=== PATIENT | male | born 1970 | race Caucasian/White ===

== ENCOUNTER 2020-11-25 21:43 | Inpatient (IN) ==
[2020-11-25] MEDS ORDERED: Morphine Sulfate 2 MG/ML SYRINGE IVP STA (21:55)
[2020-11-25] MEDS ORDERED: *HR* HYDROmorphone (PF) 1 MG/ML SYRINGE IVP ONE (22:04)
[2020-11-25] MEDS: 0.9 % Sodium Chloride 1,000 ML IVC SCH ×2 (22:18→23:32)
[2020-11-25] MEDS ORDERED: Ondansetron 4 MG/2 ML VIAL IVP ONE (22:20)
[2020-11-25 22:53] LABS: Basophils % 0.2 %; Eosinophils % 0.2 %; Hematocrit 42.3 % (37.5-50.1); Immature Granulocytes % 0.6 % (0-4); Lymphocytes # 0.6 K/mcL (0.6-4.6); Lymphocytes % 4.6 %; Mean Corpuscular HGB Conc 33.1 g/dL (31.6-35.5); Mean Corpuscular Hemoglobin 28.5 pg (28.0-33.3); Mean Corpuscular Volume 86.2 fL (83.0-100.0); Mean Platelet Volume 9.3 fL (9.4-12.4); Monocytes # 0.8 K/mcL (0.0-1.3); Monocytes % 6.3 %; Neutrophils # 10.8 K/mcL (1.6-8.9); Platelet Count 249 K/mcL (140-400); Red Blood Count 4.91 M/mcL (4.19-5.50); Red Cell Distribution Width 13.5 % (11.5-14.5); Segmented Neutrophils % 88.1 %; White Blood Count 12.3 K/mcL (4.3-11.1)
[2020-11-25 23:06] LABS: Bilirubin,Urine Negative (Negative); Blood,Urine Negative (Negative); Clarity,Urine Clear (Clear); Color,Urine Light-Yellow (Yellow); Glucose,Urine (UA) Normal (Normal); Ketones,Urine Negative (Negative); Leukocyte Esterase,Urine Negative (Negative); Nitrite,Urine Negative (Negative); PH,Urine 7.5 pH Units (5.0-8.0); Protein,Urine Trace mg/dL (Neg-Trace); Specific Gravity,Urine 1.021 (1.010-1.025); Urobilinogen,Urine Normal (Normal)
[2020-11-25] MEDS ORDERED: cefTRIAXone 1,000 MG in Water for inj. (sterile) 10 ML IVP ONE (23:08)
[2020-11-25] MEDS ORDERED: Azithromycin 500 MG in 0.9 % Sodium Chloride 250 ML IVPB ONE (23:08)
[2020-11-25 23:15] LABS: INR 1.1; Prothrombin Time 13.1 Seconds (9.4-12.1)
[2020-11-25 23:18] LABS: Activated Partial Thrombo Time 23.7 Seconds (26.0-36.0)
[2020-11-25 23:20] LABS: Albumin 4.3 g/dL (3.5-5.7); Albumin/Globulin Ratio 1.3 (1.1-2.2); Bilirubin,Indirect 0.4 mg/dL (0.0-1.0); Bilirubin,Total 0.4 mg/dL (0.3-1.0); Globulin 3.3 g/dL (2.4-3.5); Total Protein 7.6 g/dL (6.4-8.9)
[2020-11-25 23:23] LABS: BUN/Creatinine Ratio 14 (6-26); Blood Urea Nitrogen 14 mg/dL (6-20); Calcium 9.3 mg/dL (8.6-10.3); Carbon Dioxide 23 mEq/L (23-29); Chloride 105 mEq/L (98-107); Glucose 132 mg/dL (70-105); Osmolality,Calculated 288 (280-300); Potassium 4.2 mEq/L (3.5-5.1); Sodium 138 mEq/L (136-145); Troponin I < 0.03 ng/mL (< 0.04); eGFR For African Americans > 60 (> 60); eGFR For Non-African Americans > 60 (> 60)
[2020-11-26] MEDS ORDERED: Isovue-370 500 ML BOTTLE IVP ONE (00:31)
[2020-11-26] MEDS ORDERED: *HR* HYDROmorphone (PF) 1 MG/ML SYRINGE IVP STA (00:43)
[2020-11-26] MEDS ORDERED: *HR* HYDROmorphone (PF) 1 MG/ML SYRINGE IVP ONE ×4 (03:34→22:50)
[2020-11-26 04:07] LABS: Adenovirus Not Detected (Not Detect); Bordetella Pertussis Not Detected (Not Detect); Chlamydophila pneumoniae Not Detected (Not Detect); Coronavirus 229E Not Detected (Not Detect); Coronavirus HKU1 Not Detected (Not Detect); Coronavirus NL63 Not Detected (Not Detect); Coronavirus OC43 Not Detected (Not Detect); Human Metapneumovirus Not Detected (Not Detect); Human Rhinovirus/Enterovirus Not Detected (Not Detect); Influenza A Subtype 2009 H1 Not Detected (Not Detect); Influenza B Not Detected (Not Detect); Mycoplasma pneumoniae Not Detected (Not Detect); Parainfluenza Virus 1 Not Detected (Not Detect); Parainfluenza Virus 2 Not Detected (Not Detect); Parainfluenza Virus 3 Not Detected (Not Detect); Parainfluenza Virus 4 Not Detected (Not Detect); Respiratory Syncytial Virus Not Detected (Not Detect); SARS-CoV-2 Not Detected (Not Detect)
[2020-11-26] MEDS ORDERED: Ondansetron 4 MG/2 ML VIAL IVP ONE (09:04)
[2020-11-26] MEDS ORDERED: *HR* Promethazine 25 MG/ML VIAL IM PRN (10:26)
[2020-11-26] MEDS ORDERED: Naloxone 0.4 MG/ML INJ IVP PRN (10:26)
[2020-11-26] MEDS ORDERED: *HR* OxyCODONE Immed Rel 15 MG TABLET PO PRN (10:30)
[2020-11-26] MEDS: *HR* OxyCODONE Immed Rel 15 MG TABLET PO PRN ×3 (11:35→20:45)
[2020-11-26] MEDS: Vancomycin 1,500 MG/265 ML IV.SOLN IVPB SCH ×2 (11:36→23:03)
[2020-11-26] MEDS: Gabapentin 400 MG CAPSULE PO SCH ×2 (14:45→20:44)
[2020-11-26] MEDS: *HR* Methadone 10 MG TABLET PO SCH (16:11)
[2020-11-26] MEDS: Piperacillin/Tazobactam 3.375 GM in 0.9 % Sodium Chloride Mini Bag 100 ML IVPB SCH (16:12)
[2020-11-26] MEDS: *HR* Heparin 5,000 UNIT/ML VIAL SQ SCH (18:13)
[2020-11-27] MEDS: Piperacillin/Tazobactam 3.375 GM in 0.9 % Sodium Chloride Mini Bag 100 ML IVPB SCH ×2 (00:18→08:04)
[2020-11-27] MEDS: *HR* Methadone 10 MG TABLET PO SCH ×3 (00:18→17:12)
[2020-11-27] MEDS: *HR* OxyCODONE Immed Rel 15 MG TABLET PO PRN ×5 (00:45→21:03)
[2020-11-27] MEDS ORDERED: *HR* HYDROmorphone (PF) 1 MG/ML SYRINGE IVP ONE (03:34)
[2020-11-27 05:34] LABS: Basophils % 0.1 %; Eosinophils # 0.1 K/mcL (0.0-0.6); Eosinophils % 1.9 %; Hematocrit 38.3 % (37.5-50.1); Immature Granulocytes % 0.1 % (0-4); Lymphocytes # 0.8 K/mcL (0.6-4.6); Lymphocytes % 12.5 %; Mean Corpuscular HGB Conc 32.4 g/dL (31.6-35.5); Mean Corpuscular Hemoglobin 28.9 pg (28.0-33.3); Mean Corpuscular Volume 89.3 fL (83.0-100.0); Mean Platelet Volume 9.4 fL (9.4-12.4); Monocytes # 0.6 K/mcL (0.0-1.3); Monocytes % 8.8 %; Neutrophils # 5.2 K/mcL (1.6-8.9); Platelet Count 190 K/mcL (140-400); Red Blood Count 4.29 M/mcL (4.19-5.50); Red Cell Distribution Width 13.8 % (11.5-14.5); Segmented Neutrophils % 76.6 %; White Blood Count 6.7 K/mcL (4.3-11.1)
[2020-11-27 05:36] LABS: Hemoglobin 12.4 g/dL (12.9-16.9)
[2020-11-27] MEDS: *HR* Heparin 5,000 UNIT/ML VIAL SQ SCH ×2 (05:45→16:42)
[2020-11-27 05:51] LABS: BUN/Creatinine Ratio 11 (6-26); Blood Urea Nitrogen 10 mg/dL (6-20); Calcium 8.5 mg/dL (8.6-10.3); Carbon Dioxide 25 mEq/L (23-29); Chloride 105 mEq/L (98-107); Glucose 118 mg/dL (70-105); Osmolality,Calculated 282 (280-300); Potassium 4.1 mEq/L (3.5-5.1); Sodium 136 mEq/L (136-145); eGFR For African Americans > 60 (> 60); eGFR For Non-African Americans > 60 (> 60)
[2020-11-27] MEDS: Gabapentin 400 MG CAPSULE PO SCH ×3 (08:03→20:25)
[2020-11-27] MEDS ORDERED: *HR* HYDROmorphone 2 MG TABLET PO PRN (08:37)
[2020-11-27] MEDS: *HR* HYDROmorphone (PF) 1 MG/ML SYRINGE IVP PRN ×4 (09:20→22:49)
[2020-11-27] MEDS: Azithromycin 250 MG TABLET PO SCH (12:10)
[2020-11-27] MEDS: Vancomycin 1,500 MG/265 ML IV.SOLN IVPB SCH (14:54)
[2020-11-27] MEDS: Cefepime HCl 1,000 MG in Water for inj. (sterile) 10 ML IVP SCH (15:18)
[2020-11-28] MEDS: *HR* Methadone 10 MG TABLET PO SCH ×3 (00:31→15:56)
[2020-11-28] MEDS: Cefepime HCl 1,000 MG in Water for inj. (sterile) 10 ML IVP SCH ×3 (00:31→15:57)
[2020-11-28] MEDS: *HR* OxyCODONE Immed Rel 15 MG TABLET PO PRN ×3 (04:31→20:07)
[2020-11-28] MEDS: *HR* Heparin 5,000 UNIT/ML VIAL SQ SCH ×2 (05:20→16:13)
[2020-11-28] MEDS: *HR* HYDROmorphone (PF) 1 MG/ML SYRINGE IVP PRN ×5 (05:26→22:38)
[2020-11-28 06:18] LABS: Basophils % 0.2 %; Eosinophils # 0.1 K/mcL (0.0-0.6); Eosinophils % 2.6 %; Hematocrit 38.8 % (37.5-50.1); Hemoglobin 12.6 g/dL (12.9-16.9); Immature Granulocytes % 0.4 % (0-4); Lymphocytes # 0.8 K/mcL (0.6-4.6); Lymphocytes % 16.5 %; Mean Corpuscular HGB Conc 32.5 g/dL (31.6-35.5); Mean Corpuscular Hemoglobin 28.8 pg (28.0-33.3); Mean Corpuscular Volume 88.8 fL (83.0-100.0); Mean Platelet Volume 9.5 fL (9.4-12.4); Monocytes # 0.5 K/mcL (0.0-1.3); Monocytes % 11.7 %; Neutrophils # 3.2 K/mcL (1.6-8.9); Platelet Count 199 K/mcL (140-400); Red Blood Count 4.37 M/mcL (4.19-5.50); Red Cell Distribution Width 13.3 % (11.5-14.5); Segmented Neutrophils % 68.6 %; White Blood Count 4.6 K/mcL (4.3-11.1)
[2020-11-28 06:44] LABS: BUN/Creatinine Ratio 15 (6-26); Blood Urea Nitrogen 14 mg/dL (6-20); Calcium 8.7 mg/dL (8.6-10.3); Carbon Dioxide 27 mEq/L (23-29); Chloride 104 mEq/L (98-107); Glucose 101 mg/dL (70-105); Osmolality,Calculated 287 (280-300); Potassium 4.1 mEq/L (3.5-5.1); Sodium 138 mEq/L (136-145); eGFR For African Americans > 60 (> 60); eGFR For Non-African Americans > 60 (> 60)
[2020-11-28] MEDS: Gabapentin 400 MG CAPSULE PO SCH ×3 (08:04→20:07)
[2020-11-28] MEDS: Azithromycin 250 MG TABLET PO SCH (11:06)
[2020-11-29] MEDS: *HR* OxyCODONE Immed Rel 15 MG TABLET PO PRN ×3 (00:14→08:54)
[2020-11-29] MEDS: Cefepime HCl 1,000 MG in Water for inj. (sterile) 10 ML IVP SCH ×2 (00:15→08:55)
[2020-11-29] MEDS: *HR* Methadone 10 MG TABLET PO SCH ×2 (00:15→08:55)
[2020-11-29 02:15] LABS: Basophils % 0.3 %; Eosinophils # 0.1 K/mcL (0.0-0.6); Eosinophils % 3.8 %; Hemoglobin 12.4 g/dL (12.9-16.9); Immature Granulocytes % 0.3 % (0-4); Lymphocytes # 0.5 K/mcL (0.6-4.6); Lymphocytes % 16.9 %; Mean Corpuscular HGB Conc 32.6 g/dL (31.6-35.5); Mean Corpuscular Hemoglobin 28.9 pg (28.0-33.3); Mean Corpuscular Volume 88.6 fL (83.0-100.0); Mean Platelet Volume 9.5 fL (9.4-12.4); Monocytes # 0.4 K/mcL (0.0-1.3); Monocytes % 11.8 %; Neutrophils # 2.1 K/mcL (1.6-8.9); Platelet Count 201 K/mcL (140-400); Red Blood Count 4.29 M/mcL (4.19-5.50); Red Cell Distribution Width 13.3 % (11.5-14.5); Segmented Neutrophils % 66.9 %; White Blood Count 3.1 K/mcL (4.3-11.1)
[2020-11-29 02:36] LABS: BUN/Creatinine Ratio 16 (6-26); Blood Urea Nitrogen 14 mg/dL (6-20); Calcium 8.8 mg/dL (8.6-10.3); Carbon Dioxide 25 mEq/L (23-29); Chloride 102 mEq/L (98-107); Glucose 128 mg/dL (70-105); Osmolality,Calculated 284 (280-300); Potassium 4.1 mEq/L (3.5-5.1); Sodium 136 mEq/L (136-145); eGFR For African Americans > 60 (> 60); eGFR For Non-African Americans > 60 (> 60)
[2020-11-29] MEDS: *HR* HYDROmorphone (PF) 1 MG/ML SYRINGE IVP PRN ×3 (02:39→10:45)
[2020-11-29] MEDS: *HR* Heparin 5,000 UNIT/ML VIAL SQ SCH (04:22)
[2020-11-29 06:32] VITALS: BP 148/91
[2020-11-29] MEDS: Gabapentin 400 MG CAPSULE PO SCH (08:55)
== END 2020-11-29 11:29 | disposition home or self-care (01) | DRG 720 ==
LOC: EMEROOARM 21:43 → CDU 21:43 → 2NENU 11-27 17:52
PROVIDERS: ADMIT Internal Medicine; ATTEND Internal Medicine

== ENCOUNTER 2021-01-22 21:58 | Observation (INO) ==
[2021-01-23 00:18] LABS: Basophils % 0.4 %; Eosinophils # 0.1 K/mcL (0.0-0.6); Eosinophils % 2.7 %; Hematocrit 40.8 % (37.5-50.1); Hemoglobin 13.3 g/dL (12.9-16.9); Immature Granulocytes % 0.6 % (0-4); Lymphocytes # 1.4 K/mcL (0.6-4.6); Lymphocytes % 29.3 %; Mean Corpuscular HGB Conc 32.6 g/dL (31.6-35.5); Mean Corpuscular Hemoglobin 28.5 pg (28.0-33.3); Mean Corpuscular Volume 87.4 fL (83.0-100.0); Mean Platelet Volume 9.4 fL (9.4-12.4); Monocytes # 0.5 K/mcL (0.0-1.3); Monocytes % 10.9 %; Neutrophils # 2.7 K/mcL (1.6-8.9); Platelet Count 237 K/mcL (140-400); Red Blood Count 4.67 M/mcL (4.19-5.50); Red Cell Distribution Width 12.9 % (11.5-14.5); Segmented Neutrophils % 56.1 %; White Blood Count 4.9 K/mcL (4.3-11.1)
[2021-01-23 00:35] LABS: BUN/Creatinine Ratio 14 (6-26); Blood Urea Nitrogen 14 mg/dL (6-20); Calcium 9.3 mg/dL (8.6-10.3); Carbon Dioxide 25 mEq/L (23-29); Chloride 104 mEq/L (98-107); Glucose 110 mg/dL (70-105); Osmolality,Calculated 295 (280-300); Potassium 4.1 mEq/L (3.5-5.1); Sodium 142 mEq/L (136-145); eGFR For African Americans > 60 (> 60); eGFR For Non-African Americans > 60 (> 60)
[2021-01-23 00:36] LABS: Troponin I < 0.03 ng/mL (< 0.04)
[2021-01-23] MEDS ORDERED: Isovue-370 500 ML BOTTLE IVP ONE (00:45)
[2021-01-23] MEDS ORDERED: *HR* HYDROmorphone (PF) 1 MG/ML SYRINGE IVP ONE ×3 (00:47→06:12)
[2021-01-23 03:02] LABS: Alanine Aminotransferase 24 Units/L (7-52); Albumin 4.2 g/dL (3.5-5.7); Albumin/Globulin Ratio 1.5 (1.1-2.2); Alkaline Phosphatase 77 Units/L (34-104); Aspartate Amino Transferase 25 Units/L (13-39); Bilirubin,Direct 0.1 mg/dL (0.0-0.2); Bilirubin,Indirect 0.2 mg/dL (0.0-1.0); Bilirubin,Total 0.3 mg/dL (0.3-1.0); Globulin 2.8 g/dL (2.4-3.5); Lipase 27 Units/L (11-82)
[2021-01-23 03:21] LABS: Bilirubin,Urine Negative (Negative); Blood,Urine Negative (Negative); Clarity,Urine Clear (Clear); Color,Urine Colorless (Yellow); Glucose,Urine (UA) Normal (Normal); Ketones,Urine Negative (Negative); Leukocyte Esterase,Urine Negative (Negative); Nitrite,Urine Negative (Negative); PH,Urine 7.5 pH Units (5.0-8.0); Protein,Urine Negative (Neg-Trace); Specific Gravity,Urine > 1.030 (1.010-1.025); Urobilinogen,Urine Normal (Normal)
[2021-01-23] MEDS ORDERED: Ondansetron 4 MG/2 ML VIAL IVP ONE (03:41)
[2021-01-23] MEDS ORDERED: Famotidine 20 MG/2 ML VIAL IVP ONE (03:41)
[2021-01-23] MEDS ORDERED: Aspirin 81 MG TAB.CHEW PO ONE (04:55)
[2021-01-23] MEDS ORDERED: Naloxone 0.4 MG/ML INJ IVP PRN (07:32)
[2021-01-23] MEDS ORDERED: Ondansetron 4 MG/2 ML VIAL IVP PRN (07:32)
[2021-01-23] MEDS ORDERED: Nitroglycerin 0.4 MG TAB.SUBL SL PRN (07:35)
[2021-01-23] MEDS ORDERED: Perflutren Lipid Microsphere 1.3 ML in 0.9 % Sodium Chloride 8.7 ML IVP PRN (07:36)
[2021-01-23] MEDS ORDERED: *HR* OxyCODONE Oral Soln 5 MG/5 ML UD.LIQ PO PRN (08:52)
[2021-01-23] MEDS ORDERED: Ipratropium/Albuterol Neb 3 ML IH PRN (08:53)
[2021-01-23] MEDS ORDERED: *HR* OxyCODONE/APAP 10/325 TABLET PO PRN (08:54)
[2021-01-23] MEDS: Aspirin Enteric Coated 81 MG Tablet PO SCH (09:42)
[2021-01-23] MEDS: *HR* HYDROmorphone (PF) 1 MG/ML SYRINGE IVP PRN ×2 (10:19→17:49)
[2021-01-23] MEDS: *HR* OxyCODONE Immed Rel 15 MG TABLET PO PRN ×3 (11:02→20:44)
[2021-01-23] MEDS: Gabapentin 400 MG CAPSULE PO SCH ×2 (15:11→20:07)
[2021-01-23] MEDS: *HR* Methadone 10 MG TABLET PO SCH ×2 (15:44→23:45)
[2021-01-23] MEDS: *HR* Heparin 5,000 UNIT/ML VIAL SQ SCH (17:48)
[2021-01-24] MEDS: *HR* HYDROmorphone (PF) 1 MG/ML SYRINGE IVP PRN ×4 (00:30→17:38)
[2021-01-24] MEDS ORDERED: *HR* HYDROmorphone (PF) 1 MG/ML SYRINGE IVP ONE ×2 (01:35→19:53)
[2021-01-24] MEDS: *HR* OxyCODONE Immed Rel 15 MG TABLET PO PRN ×5 (02:49→22:40)
[2021-01-24] MEDS: *HR* Heparin 5,000 UNIT/ML VIAL SQ SCH ×2 (06:24→17:41)
[2021-01-24] MEDS: Gabapentin 400 MG CAPSULE PO SCH ×3 (08:48→20:11)
[2021-01-24] MEDS: Aspirin Enteric Coated 81 MG Tablet PO SCH (08:48)
[2021-01-24] MEDS: *HR* Methadone 10 MG TABLET PO SCH ×2 (08:48→16:15)
[2021-01-24 09:02] LABS: BUN/Creatinine Ratio 16 (6-26); Blood Urea Nitrogen 16 mg/dL (6-20); Calcium 8.7 mg/dL (8.6-10.3); Carbon Dioxide 18 mEq/L (23-29); Chloride 104 mEq/L (98-107); Chol/HDL Ratio 4.6 (0-4.9); Cholesterol 170 mg/dL (< 200); Glucose 147 mg/dL (70-105); HDL Cholesterol 37 mg/dL (40-59); LDL Cholesterol,Calculated 95 mg/dL (< 100); Magnesium 2.1 mg/dL (1.6-2.6); Osmolality,Calculated 286 (280-300); Phosphorous 3.6 mg/dL (2.7-4.5); Potassium 4.4 mEq/L (3.5-5.1); Sodium 136 mEq/L (136-145); Triglycerides 189 mg/dL (< 150); eGFR For African Americans > 60 (> 60); eGFR For Non-African Americans > 60 (> 60)
[2021-01-25] MEDS: *HR* Methadone 10 MG TABLET PO SCH ×4 (00:11→23:57)
[2021-01-25] MEDS: *HR* HYDROmorphone (PF) 1 MG/ML SYRINGE IVP PRN ×6 (02:55→22:25)
[2021-01-25] MEDS: *HR* OxyCODONE Immed Rel 15 MG TABLET PO PRN ×5 (03:05→22:37)
[2021-01-25] MEDS: *HR* Heparin 5,000 UNIT/ML VIAL SQ SCH ×2 (05:38→18:17)
[2021-01-25] MEDS: Aspirin Enteric Coated 81 MG Tablet PO SCH (08:36)
[2021-01-25] MEDS: Gabapentin 400 MG CAPSULE PO SCH ×3 (08:36→21:59)
[2021-01-25] MEDS ORDERED: *HR* HYDROmorphone (PF) 1 MG/ML SYRINGE IVP ONE (22:51)
[2021-01-26] MEDS ORDERED: *HR* HYDROmorphone (PF) 1 MG/ML SYRINGE IVP ONE ×2 (00:24→03:50)
[2021-01-26] MEDS: *HR* HYDROmorphone (PF) 1 MG/ML SYRINGE IVP PRN ×2 (02:25→06:25)
[2021-01-26] MEDS: *HR* OxyCODONE Immed Rel 15 MG TABLET PO PRN ×2 (02:48→06:48)
[2021-01-26] MEDS: *HR* Heparin 5,000 UNIT/ML VIAL SQ SCH (05:11)
[2021-01-26 07:27] VITALS: BP 99/59
== END 2021-01-26 08:30 | disposition home or self-care (01) ==
LOC: CDU 21:58 → EMEROOARM 21:58 → SUATTDRO 01-23 05:50 → CDU 01-23 05:55 → 3ANU 01-23 16:24
PROVIDERS: ADMIT Family Medicine; ATTEND Internal Medicine